=== PATIENT | male | born 1995 | race Caucasian/White ===

== ENCOUNTER 2021-08-19 18:25 | Inpatient (IN) ==
[2021-08-19 19:25] LABS: Basophils % 0.2 %; Eosinophils # 0.1 K/mcL (0.0-0.6); Eosinophils % 1.7 %; Hematocrit 50.2 % (37.5-50.1); Hemoglobin 17.1 g/dL (12.9-16.9); Immature Granulocytes % 0.9 % (0-4); Lymphocytes # 1.8 K/mcL (0.6-4.6); Lymphocytes % 21.8 %; Mean Corpuscular HGB Conc 34.1 g/dL (31.6-35.5); Mean Corpuscular Hemoglobin 29.7 pg (28.0-33.3); Mean Corpuscular Volume 87.2 fL (83.0-100.0); Mean Platelet Volume 10.3 fL (9.4-12.4); Monocytes # 0.6 K/mcL (0.0-1.3); Monocytes % 7.9 %; Neutrophils # 5.5 K/mcL (1.6-8.9); Platelet Count 216 K/mcL (140-400); Red Blood Count 5.76 M/mcL (4.19-5.50); Red Cell Distribution Width 13.1 % (11.5-14.5); Segmented Neutrophils % 67.5 %; White Blood Count 8.1 K/mcL (4.3-11.1)
[2021-08-19 19:31] LABS: Bilirubin,Urine Negative (Negative); Blood,Urine Negative (Negative); Clarity,Urine Clear (Clear); Color,Urine Yellow (Yellow); Glucose,Urine (UA) Normal (Normal); Ketones,Urine Negative (Negative); Leukocyte Esterase,Urine Negative (Negative); Mucus,Urine Many per lpf (None-Few); Nitrite,Urine Negative (Negative); Protein,Urine 50 mg/dL (Neg-Trace); RBC,Urine 0-3 per hpf (0-3); Specific Gravity,Urine > 1.030 (1.010-1.025); Urobilinogen,Urine Normal (Normal); WBC,Urine 0-3 per hpf (0-3)
[2021-08-19 19:35] LABS: Estimated Average Glucose 97 mg/dl
[2021-08-19 19:40] LABS: Amphetamine Screen,Urine Negative ng/mL (Cutoff=1000); Barbiturate Screen,Urine Negative ng/mL (Cutoff=200); Benzodiazepines Screen,Urine Negative ng/mL (Cutoff=200); Cannabinoid Screen,Urine Negative ng/mL (Cutoff = 50); Cocaine Screen,Urine Negative ng/mL (Cutoff= 300); Opiate Screen,Urine Negative ng/mL (Cutoff=300); Phencyclidine Screen,Urine Negative ng/mL (Cutoff=25)
[2021-08-19 19:44] LABS: Acetaminophen < 10 mcg/mL (10-20); BUN/Creatinine Ratio 19 (6-26); Blood Urea Nitrogen 15 mg/dL (6-20); Calcium 9.8 mg/dL (8.6-10.3); Carbon Dioxide 26 mEq/L (23-29); Chloride 103 mEq/L (98-107); Chol/HDL Ratio 4.7 (0-4.9); Cholesterol 202 mg/dL (< 200); Ethanol < 10 mg/dL (Less than 10); Glucose 101 mg/dL (70-105); HDL Cholesterol 43 mg/dL (40-59); LDL Cholesterol,Calculated 110 mg/dL (< 100); Osmolality,Calculated 283 (280-300); Salicylate < 2.5 mg/dL (15.0-30.0); Sodium 136 mEq/L (136-145); Triglycerides 244 mg/dL (< 150); eGFR For African Americans > 60 (> 60); eGFR For Non-African Americans > 60 (> 60)
[2021-08-19 22:02] LABS: Influenza A PCR Negative (Negative); Influenza B PCR Negative (Negative); Resp. Syncytial Virus PCR Negative (Negative)
[2021-08-19 22:04] LABS: SARS-CoV-2 by PCR (In House) Negative (Negative)
[2021-08-19] MEDS ORDERED: traZODone 50 MG TABLET PO PRN (22:58)
[2021-08-19] MEDS ORDERED: Haloperidol Lactate 5 MG/ML VIAL IM PRN (22:58)
[2021-08-19] MEDS ORDERED: haloperidoL 5 MG TABLET PO PRN (22:58)
[2021-08-19] MEDS ORDERED: hydrOXYzine pamoate 25 MG CAPSULE PO PRN (22:58)
[2021-08-19] MEDS ORDERED: *HR* LORazepam 2 MG/ML VIAL IM PRN (22:58)
[2021-08-19] MEDS ORDERED: *HR* LORazepam 1 MG TABLET PO PRN (22:58)
[2021-08-20] MEDS ORDERED: Mag Hydrox/Al Hydrox/Simeth 30 ML UDC PO PRN (08:25)
[2021-08-20] MEDS ORDERED: QUEtiapine Fumarate 25 MG TABLET PO PRN (11:38)
[2021-08-20] MEDS: *HR* LORazepam 0.5 MG TABLET PO SCH ×2 (11:59→20:44)
[2021-08-20] MEDS ORDERED: MOM Conc 10 ML UD.LIQ PO PRN (21:00)
[2021-08-20 21:01] VITALS: O2SAT 98
[2021-08-21] MEDS: *HR* LORazepam 0.5 MG TABLET PO SCH (09:41)
[2021-08-21 09:44] VITALS: BP 100/69; PULSE 72; TEMP 97
[2021-08-21] MEDS ORDERED: FLU Vac QV 21-22 (6Month+)/PF 0.5 ML SYRINGE IM ONE (12:42)
== END 2021-08-21 16:10 | disposition home or self-care (01) | DRG 881 ==
LOC: EMEROOARM 18:25 → 1ANU 22:59
PROVIDERS: ADMIT Psychiatry & Neurology Psychiatry; ATTEND Psychiatry & Neurology Psychiatry